=== PATIENT | female | born 1970 | race Caucasian/White ===

== ENCOUNTER → 2017-12-21 08:51 | Outpatient (CLI) | payer BC ==
--- NOTE | ~2017-12-21 | EC ---
PATIENT:CARMINA LIMON DATE OF SERVICE: 12/21/17 SEX: F MEDICAL RECORD: [id number] DATE OF : [birth year] [facility] AGE OF PATIENT: 47 ADMISSION DATE: 12/21/17 REFERRING PHYSICIAN: INTERPRETING PHYSICIAN: JANETT FRAIRE MD ECHOCARDIOGRAM REPORT ECHO CHARGES 4 ECHO COMPLETE Date: 12/21 CLINICAL DIAGNOSIS: CHEST PAIN, FATIGUE ECHOCARDIOGRAPHIC MEASUREMENTS (adult normal given) AC root (d.<3.7cm) 3.3 cm LV Septum d (<1.2 cm> 1.2 cm Valve Excursion 1.6 cm LV Septum (systole) 1.5 cm Left Atria (s.<4.0cm> 4.0 cm LVPW d(<1.2cm) 1.6 cm RV (d.<2.3cm) 3.8 cm LVPW (sytole) 1.8 cm LV diastole(<5.6CM) 4.4 cm MV E-F(>70mm/sec) cm LV systole 2.6 cm LVOT Diameter 2.0 cm MV exc.(>10mm) 1.5 cm Est.ejection fraction (50-75%) % DOPPLER: LVIT cm/sec A 85.0 cm/sec E 110 cm/sec LA cm/sec RVSP 32 mmHg LVOT 106 cm/sec AOP1/2T m/s Asc. Ao 133 cm/sec RVOT 107 cm/sec RA cm/sec PA 124 cm/sec AV Gradient Peak 7.04 mmHg AV Mean 3.78 mmHg AV Area 2.7 cm MV Gradient Peak 7.45 mmHg MV Mean 2.51 mmHg MV Area cm COMMENTS: Block Mason: 2 [employer]IA [employer] Supervisor: 4 Dr. Fraire TAPE# PACS Pericardial Effusion N DATE OF SERVICE: PROCEDURE: Transthoracic echocardiogram. FINDINGS: 1. The left ventricle has mild concentric left ventricular hypertrophy. Inflow characteristics are normal. Ejection fraction 65% to 70%. 2. The left atrium is mildly dilated 4.0 cm. 3. The aortic valve is normal. 4. The right atrium is normal. ECHOCARDIOGRAM REPORT [id number] CARMINA LIMON 5. The right ventricle is upper limits of normal to mildly dilated. 6. The tricuspid valve has mild tricuspid regurgitation, otherwise structurally normal. 7. The pulmonic valve is not well visualized, but by Doppler interrogation appears to be normal. 8. The pericardium is normal. CONCLUSIONS: The patient has evidence of mild left ventricular hypertrophy with normal LV systolic function. TRANSINT:[id number] Voice Confirmation ID: [id number] DOCUMENT ID: [id number] JANETT FRAIRE MD at 1426 CC: [id number] DICTATION DATE: 12/22/17 0840 MIRROR SILVERER: 12/22/17 1129 DEP CLI 12/21/17 [id number] [place] [address]
== END | disposition home or self-care (01) ==
LOC: D.ECHO 08:51
DX: R07.9 Chest pain, unspecified (principal); R53.83 Other fatigue

== ENCOUNTER 2019-07-03 08:00 | Outpatient (CLI) | payer OTHER | END 2019-07-03 23:59 | disposition home or self-care (01) | LOC: D.MAMMO 08:00 | PROVIDERS: ATTEND Nurse Practitioner Family | DX: Z12.31 Encounter for screening mammogram for malignant neoplasm of breast (principal) ==

== ENCOUNTER 2019-08-01 08:00 | Outpatient (CLI) | payer MEDICAID | END 2019-08-01 23:59 | disposition home or self-care (01) | LOC: D.MAMMO 08:00 | PROVIDERS: ATTEND Nurse Practitioner Family | DX: N64.89 Other specified disorders of breast (principal) ==